=== PATIENT | male | born 1950 | race African-American/Black ===

== ENCOUNTER 2016-05-26 00:10 | Inpatient (IN) | payer MEDICARE, OTHER ==
[~2016-05-26] VITALS: Ht 175.3 cm; Wt 63.7 kg
[2016-05-26 01:15] LABS: Basophils # (auto) 0 uL; Basophils % (auto) 0.2 % (0.0-2.0); Eosinophils # (auto) 0.1 uL; Eosinophils % (auto) 1.2 % (0.0-7.0); Hematocrit 42.7 % (41.0-53.0); Hemoglobin 13.8 g/dL (13.5-17.5); Lymphocytes # (auto) 0.6 uL; Lymphocytes % (auto) 7.2 % (10.0-50.0); Mean Corpuscular Hemoglobin 29.9 pg (28.0-32.0); Mean Corpuscular Hgb Conc. 32.4 g/dL (32.0-36.0); Mean Corpuscular Volume 92.2 fL (80.0-100.0); Monocytes # (auto) 0.4 uL; Monocytes % (auto) 5.3 % (0.0-12.0); Neutrophils # (auto) 7.2 uL; Neutrophils % (auto) 86.1 % (37.0-80.0); Platelet Count (auto) 196 10^3/uL (140-450); Red Cell Distribution Width 13.2 % (11.6-16.0); SUSPECT VIEW TRANSMISSION; White Blood Cell 8.3 10^3/uL (4.4-10.8)
[2016-05-26 01:36] LABS: Albumin 3.3 g/dL (3.4-5.0); Calcium 8.6 mg/dL (8.5-10.1); Potassium 3.2 mmol/L (3.5-5.1)
[2016-05-26 01:39] LABS: BUN/Creatinine Ratio 9.2
[2016-05-26 01:43] LABS: Bilirubin, Total 0.3 mg/dL (0.2-1.0); Magnesium 1.8 mg/dL (1.6-2.6); Total Protein 6.3 g/dL (6.4-8.2)
[2016-05-26] MEDS ORDERED: POTASSIUM CHL 20 Meq TABLET PO ONE (02:00)
[2016-05-26] MEDS ORDERED: PROMETHAZINE W/CODEINE 5 ML ORAL SYRUP PO ONE (02:00)
[2016-05-26] MEDS ORDERED: ASPirin 81 mg TAB PO ONE (02:15)
[2016-05-26 03:17] LABS: Urine Bilirubin Negative (Negative); Urine Color Yellow (Yellow); Urine Hyaline Cast FEW /lpf (0 - 2); Urine Ketone Negative (Negative); Urine Nitrite Negative (Negative); Urine RBC 41 /hpf (0 - 3); Urine Urobilinogen Normal (Negative); Urine pH 6.5 (5.0-8.0)
[2016-05-26 03:20] LABS: Urine Blood 2+ /uL (Negative); Urine Glucose 2+ mg/dL (Normal)
[2016-05-26 03:34] LABS: INR 0.99 (0.9-1.15); Partial Thromboplastin Time 26.8 sec (22.64-33.71); Prothrombin Time 10.2 sec (9.37-12.3)
[2016-05-26 04:08] LABS: B-Type Natriuretic Peptide 20.3 pg/mL (0-100); Temperature: 20.5 C (20.0-25.0)
[2016-05-26] MEDS ORDERED: NITROGLYCERIN 2% OINT 1GM PKG TD ONE (08:15)
[2016-05-26] MEDS ORDERED: CLOPIDOGREL BISULFATE 75 MG TAB PO ONE (08:15)
[2016-05-26] MEDS ORDERED: ALBUTEROL SULF 2.5 MG/0.5ML(0.5%) NEB SOLN NEB ONE (08:30)
[2016-05-26] MEDS ORDERED: IPRATROPIUM BROM 0.5 MG/2.5ML INH SOL NEB ONE (08:30)
[2016-05-26] MEDS ORDERED: cloNIDine HCL 0.1 MG TAB PO PRN (12:00)
[2016-05-26] MEDS ORDERED: cefTRIAXone 1GM/50ML D5W 50 ML IV ONE (12:00)
[2016-05-26] MEDS ORDERED: ZOLPIDEM TARTRATE 5 MG TAB PO PRN (12:15)
[2016-05-26] MEDS ORDERED: ALUM & MAG HYDROX-SIMETH LIQ(MAALOX) 30 ML PO PRN (12:15)
[2016-05-26] MEDS ORDERED: NITROGLYCERIN 0.4 MG SL TAB SL PRN ×2 (12:15)
[2016-05-26] MEDS ORDERED: MORPHINE SULF INJ 2 MG/ML SYRINGE 1ML IV PRN ×2 (12:15)
[2016-05-26] MEDS ORDERED: ONDANSETRON HCL 4 MG/2 ML VIAL IV PRN (12:15)
[2016-05-26] MEDS: methylPREDNISolone SOD SUCC 125 MG/2 ML VL IV SCH ×2 (13:02→18:36)
[2016-05-26] MEDS: ALBUTEROL SULF 2.5 MG/0.5ML(0.5%) NEB SOLN NEB SCH ×2 (13:09→18:41)
[2016-05-26] MEDS: IPRATROPIUM BROM 0.5 MG/2.5ML INH SOL NEB SCH ×2 (13:09→18:41)
[2016-05-26 13:27] VITALS: BP 114/72
[2016-05-26] MEDS: SODIUM CHLOR 0.9% PF (SALINE LOCK) 10ML VIAL IV SCH ×2 (14:00→22:00)
[2016-05-26] MEDS: CARVEDILOL 3.125 MG TAB PO SCH (22:00)
[2016-05-26] MEDS: ATORVASTATIN 20 MG TAB PO SCH (22:00)
[2016-05-26] MEDS: ENOXAPARIN SOD 80 MG/0.8ML SYRINGE SC SCH (22:00)
[2016-05-26] MEDS: ENALAPRIL MALEATE 2.5 MG TAB PO SCH (22:00)
[2016-05-27] MEDS: ALBUTEROL SULF 2.5 MG/0.5ML(0.5%) NEB SOLN NEB SCH ×4 (00:47→18:34)
[2016-05-27] MEDS: IPRATROPIUM BROM 0.5 MG/2.5ML INH SOL NEB SCH ×4 (00:47→18:34)
[2016-05-27] MEDS: methylPREDNISolone SOD SUCC 125 MG/2 ML VL IV SCH ×4 (06:09→18:14)
[2016-05-27] MEDS: SODIUM CHLOR 0.9% PF (SALINE LOCK) 10ML VIAL IV SCH ×3 (06:09→18:45)
[2016-05-27 06:22] LABS: Basophils # (auto) 0 uL; Basophils % (auto) 0.1 % (0.0-2.0); Eosinophils # (auto) 0 uL; Eosinophils % (auto) 0.1 % (0.0-7.0); Hematocrit 39.8 % (41.0-53.0); Lymphocytes # (auto) 0.8 uL; Lymphocytes % (auto) 14.5 % (10.0-50.0); Mean Corpuscular Hemoglobin 29.9 pg (28.0-32.0); Mean Corpuscular Hgb Conc. 32.7 g/dL (32.0-36.0); Mean Corpuscular Volume 91.6 fL (80.0-100.0); Mean Platelet Volume 7.1 fL (7.4-10.4); Monocytes # (auto) 0.1 uL; Monocytes % (auto) 2.7 % (0.0-12.0); Neutrophils # (auto) 4.4 uL; Neutrophils % (auto) 82.6 % (37.0-80.0); Platelet Count (auto) 198 10^3/uL (140-450); Red Cell Distribution Width 14.4 % (11.6-16.0); White Blood Cell 5.3 10^3/uL (4.4-10.8)
[2016-05-27 07:46] LABS: BUN/Creatinine Ratio 22.7; Bilirubin, Total 0.4 mg/dL (0.2-1.0); Calcium 8.8 mg/dL (8.5-10.1); Magnesium 2.2 mg/dL (1.6-2.6); Potassium 4.3 mmol/L (3.5-5.1); Total Protein 6.1 g/dL (6.4-8.2)
[2016-05-27] MEDS: cefTRIAXone 1GM/50ML D5W 50 ML IV SCH (09:59)
[2016-05-27] MEDS: ENOXAPARIN SOD 80 MG/0.8ML SYRINGE SC SCH (09:59)
[2016-05-27] MEDS: CLOPIDOGREL BISULFATE 75 MG TAB PO SCH (09:59)
[2016-05-27] MEDS: CARVEDILOL 3.125 MG TAB PO SCH ×2 (09:59→23:25)
[2016-05-27] MEDS: DOCUSATE SOD 100 MG CAP PO SCH (09:59)
[2016-05-27] MEDS: ENALAPRIL MALEATE 2.5 MG TAB PO SCH ×2 (09:59→23:26)
[2016-05-27] MEDS: CHOLECALCIFEROL (VITD3) 1,000 UNIT TAB PO SCH (09:59)
[2016-05-27] MEDS: ASPirin 81 mg TAB PO SCH (09:59)
[2016-05-27] MEDS: ATORVASTATIN 20 MG TAB PO SCH (23:25)
[2016-05-28] MEDS: methylPREDNISolone SOD SUCC 125 MG/2 ML VL IV SCH ×4 (00:04→18:00)
[2016-05-28] MEDS: IPRATROPIUM BROM 0.5 MG/2.5ML INH SOL NEB SCH ×3 (00:10→19:26)
[2016-05-28] MEDS: ALBUTEROL SULF 2.5 MG/0.5ML(0.5%) NEB SOLN NEB SCH ×3 (00:10→19:26)
[2016-05-28] MEDS: SODIUM CHLOR 0.9% PF (SALINE LOCK) 10ML VIAL IV SCH ×3 (06:00→21:58)
[2016-05-28] MEDS ORDERED: LIDOCAINE 2%HCL (LOCAL ANESTH.) INJ 20ML MDV ONE ×2 (07:42→20:07)
[2016-05-28] MEDS ORDERED: IODIXANOL 320MG/ML 100ML BTL IV ONE ×2 (07:52→20:07)
[2016-05-28] MEDS: cefTRIAXone 1GM/50ML D5W 50 ML IV SCH (08:06)
[2016-05-28] MEDS ORDERED: VERAPAMIL 2.5MG/ML INJ 2ML VIAL IV ONE (09:14)
[2016-05-28] MEDS ORDERED: ANGIOMAX 250 MG VIAL IV ONE ×2 (09:14→20:27)
[2016-05-28] MEDS ORDERED: SODIUM CHL 0.9% 50 ML ONE ×2 (09:15→20:27)
[2016-05-28] MEDS ORDERED: EPTIFIBATIDE INJ (2MG/ML) 10ML VIAL IV ONE (09:15)
[2016-05-28] MEDS ORDERED: MIDAZOLAM HCL 1MG/1ML-2 ML VIAL ONE ×2 (09:15→20:27)
[2016-05-28] MEDS ORDERED: fentaNYL CITRATE 100 MCG/2 ML VL ONE ×2 (09:15→20:27)
[2016-05-28] MEDS ORDERED: PRASUGREL HCL 10 MG TAB ONE ×2 (09:46→09:48)
[2016-05-28] MEDS ORDERED: ASPirin 81 mg TAB ONE (09:49)
[2016-05-28] MEDS: ASPirin 81 mg TAB PO SCH (10:00)
[2016-05-28] MEDS: CLOPIDOGREL BISULFATE 75 MG TAB PO SCH (10:00)
[2016-05-28] MEDS: ENALAPRIL MALEATE 2.5 MG TAB PO SCH ×2 (10:00→22:00)
[2016-05-28] MEDS: CHOLECALCIFEROL (VITD3) 1,000 UNIT TAB PO SCH (10:00)
[2016-05-28] MEDS: DOCUSATE SOD 100 MG CAP PO SCH (10:00)
[2016-05-28] MEDS: CARVEDILOL 3.125 MG TAB PO SCH (10:00)
[2016-05-28 13:00] VITALS: BP 146/113
[2016-05-28] MEDS: AZITHROMYCIN 500MG/D5W 250ML 250 ML IV SCH (14:30)
[2016-05-28 15:07] LABS: B-Type Natriuretic Peptide 191.8 pg/mL (0-100); Temperature: 22.7 C (20.0-25.0)
[2016-05-28] MEDS ORDERED: FUROSEMIDE 20 MG/2 ML VIAL IV ONE (16:45)
[2016-05-28 17:00] VITALS: BP 159/104
[2016-05-28] MEDS: LORazepam 0.5 MG TAB PO PRN ×2 (17:02→22:07)
[2016-05-28] MEDS ORDERED: METOPROLOL TARTRATE 1MG/1ML-5ML VIAL IV ONE (17:45)
[2016-05-28] MEDS ORDERED: DILTIAZEM HCL 25 MG/5 ML VIAL IV ONE (18:45)
[2016-05-28 18:53] LABS: Basophils # (auto) 0 uL; Basophils % (auto) 0.1 % (0.0-2.0); Eosinophils # (auto) 0 uL; Hematocrit 41.1 % (41.0-53.0); Hemoglobin 13.4 g/dL (13.5-17.5); Lymphocytes # (auto) 0.5 uL; Lymphocytes % (auto) 5.8 % (10.0-50.0); Mean Corpuscular Hemoglobin 29.7 pg (28.0-32.0); Mean Corpuscular Hgb Conc. 32.7 g/dL (32.0-36.0); Mean Corpuscular Volume 90.8 fL (80.0-100.0); Mean Platelet Volume 7.2 fL (7.4-10.4); Monocytes # (auto) 0.2 uL; Monocytes % (auto) 2.1 % (0.0-12.0); Platelet Count (auto) 205 10^3/uL (140-450); Red Cell Distribution Width 14.3 % (11.6-16.0); White Blood Cell 8.7 10^3/uL (4.4-10.8)
[2016-05-28 20:00] VITALS: BP 140/111
[2016-05-28 20:04] LABS: BUN/Creatinine Ratio 31.5; Calcium 7.7 mg/dL (8.5-10.1)
[2016-05-28] MEDS ORDERED: NITROGLYCERIN 50MG/250ML 250 ML IV ONE (20:45)
[2016-05-28] MEDS: HEPARIN DRIP/D5W 100UNITS/ML 250 ML IV SCH (21:18)
[2016-05-28] MEDS ORDERED: AMIODARONE HCL 900 MG in DEXTROSE 500 ML IV SCH (21:28)
[2016-05-28] MEDS ORDERED: AMIODARONE HCL 150 MG in D5W 5% 100 ML IV ONE (21:30)
[2016-05-28 21:58] LABS: Basophils # (auto) 0 uL; Eosinophils # (auto) 0 uL; Hematocrit 38.2 % (41.0-53.0); Hemoglobin 12.4 g/dL (13.5-17.5); Lymphocytes # (auto) 0.4 uL; Mean Corpuscular Hemoglobin 29.7 pg (28.0-32.0); Mean Corpuscular Hgb Conc. 32.4 g/dL (32.0-36.0); Mean Corpuscular Volume 91.7 fL (80.0-100.0); Mean Platelet Volume 7.1 fL (7.4-10.4); Monocytes # (auto) 0.2 uL; Monocytes % (auto) 2.8 % (0.0-12.0); Neutrophils # (auto) 7.8 uL; Neutrophils % (auto) 92.2 % (37.0-80.0); Platelet Count (auto) 209 10^3/uL (140-450); Red Cell Distribution Width 14.1 % (11.6-16.0); White Blood Cell 8.5 10^3/uL (4.4-10.8)
[2016-05-28] MEDS: ATORVASTATIN 20 MG TAB PO SCH (22:00)
[2016-05-28 22:10] LABS: INR 1.02 (0.9-1.15); Partial Thromboplastin Time 27.2 sec (22.64-33.71); Prothrombin Time 10.5 sec (9.37-12.3)
[2016-05-28 23:15] VITALS: BP 133/70
[2016-05-28 23:30] VITALS: BP 154/68
[2016-05-28 23:45] VITALS: BP 148/84
[2016-05-29] VITALS (90 sets, daily range): BP systolic 90–157; BP diastolic 40–101
[2016-05-29] MEDS: NITROGLYCERIN 50MG/250ML 250 ML IV SCH
[2016-05-29] MEDS: IPRATROPIUM BROM 0.5 MG/2.5ML INH SOL NEB SCH ×4 (00:06→22:25)
[2016-05-29] MEDS: ALBUTEROL SULF 2.5 MG/0.5ML(0.5%) NEB SOLN NEB SCH ×4 (00:06→22:25)
[2016-05-29] MEDS: methylPREDNISolone SOD SUCC 125 MG/2 ML VL IV SCH ×5 (00:28→23:34)
[2016-05-29] MEDS: AMIODARONE HCL 900 MG in DEXTROSE 500 ML IV SCH ×2 (03:49→20:27)
[2016-05-29 03:51] LABS: Basophils # (auto) 0 uL; Eosinophils # (auto) 0 uL; Hematocrit 37.9 % (41.0-53.0); Hemoglobin 12.3 g/dL (13.5-17.5); Lymphocytes # (auto) 0.5 uL; Lymphocytes % (auto) 5.6 % (10.0-50.0); Mean Corpuscular Hemoglobin 29.8 pg (28.0-32.0); Mean Corpuscular Hgb Conc. 32.5 g/dL (32.0-36.0); Mean Corpuscular Volume 91.7 fL (80.0-100.0); Mean Platelet Volume 7.2 fL (7.4-10.4); Monocytes # (auto) 0.4 uL; Monocytes % (auto) 4.2 % (0.0-12.0); Neutrophils # (auto) 7.7 uL; Neutrophils % (auto) 90.2 % (37.0-80.0); Platelet Count (auto) 208 10^3/uL (140-450); White Blood Cell 8.5 10^3/uL (4.4-10.8)
[2016-05-29 04:09] LABS: BUN/Creatinine Ratio 35.7; Calcium 8.1 mg/dL (8.5-10.1); Magnesium 2.5 mg/dL (1.6-2.6); Potassium 4.1 mmol/L (3.5-5.1)
[2016-05-29 04:19] LABS: INR 1.01 (0.9-1.15); Partial Thromboplastin Time 42.6 sec (22.64-33.71); Prothrombin Time 10.4 sec (9.37-12.3)
[2016-05-29] MEDS: SODIUM CHLOR 0.9% PF (SALINE LOCK) 10ML VIAL IV SCH ×2 (06:01→22:00)
[2016-05-29] MEDS ORDERED: DEXTROSE (50%) 50ML SYRG IV PRN (06:30)
[2016-05-29] MEDS ORDERED: CLOPIDOGREL BISULFATE 75 MG TAB PO ONE (08:00)
[2016-05-29 10:11] LABS: INR 1.04 (0.9-1.15); Partial Thromboplastin Time 54.2 sec (22.64-33.71); Prothrombin Time 10.7 sec (9.37-12.3)
[2016-05-29] MEDS: DOCUSATE SOD 100 MG CAP PO SCH (10:16)
[2016-05-29] MEDS: CHOLECALCIFEROL (VITD3) 1,000 UNIT TAB PO SCH (10:16)
[2016-05-29] MEDS: ENALAPRIL MALEATE 2.5 MG TAB PO SCH ×2 (10:16→21:44)
[2016-05-29] MEDS: cefTRIAXone 1GM/50ML D5W 50 ML IV SCH (10:16)
[2016-05-29] MEDS: ASPirin 81 mg TAB PO SCH (10:16)
[2016-05-29 10:58] LABS: Albumin 2.9 g/dL (3.4-5.0); BUN/Creatinine Ratio 31.3; Bilirubin, Total 0.3 mg/dL (0.2-1.0); Calcium 8.4 mg/dL (8.5-10.1); Potassium 4.1 mmol/L (3.5-5.1); Total Protein 5.9 g/dL (6.4-8.2)
[2016-05-29] MEDS: ACCU-CHEK COMFORT CURVE STRIP VI SCH ×3 (12:20→23:34)
[2016-05-29] MEDS: AZITHROMYCIN 500MG/D5W 250ML 250 ML IV SCH (12:20)
[2016-05-29] MEDS: InsuLIN REG 1unit/0.01ml Soln (100units/ml) SC SCH ×3 (12:22→23:40)
[2016-05-29] MEDS: HYDROmorphone HCL 2 MG/ML VL IV PRN (20:23)
[2016-05-29] MEDS: HEPARIN DRIP/D5W 100UNITS/ML 250 ML IV SCH (20:32)
[2016-05-29 21:04] LABS: INR 1.05 (0.9-1.15); Partial Thromboplastin Time 58.5 sec (22.64-33.71); Prothrombin Time 10.8 sec (9.37-12.3)
[2016-05-29] MEDS: ATORVASTATIN 20 MG TAB PO SCH (21:44)
[2016-05-29] MEDS: ACETYLCYSTEINE 10 %(100MG/ML) SOL 4ML NEB SCH (22:25)
[2016-05-29] MEDS: ACETAMINOPHEN 325 MG TAB PO PRN (22:41)
[2016-05-30] VITALS (77 sets, daily range): BP systolic 84–165; BP diastolic 46–111
[2016-05-30] MEDS: NITROGLYCERIN 50MG/250ML 250 ML IV SCH (01:46)
[2016-05-30] MEDS: IPRATROPIUM BROM 0.5 MG/2.5ML INH SOL NEB SCH ×9 (02:30→23:30)
[2016-05-30 04:10] LABS: Basophils # (auto) 0 uL; Eosinophils # (auto) 0 uL; Hematocrit 34.3 % (41.0-53.0); Hemoglobin 11.2 g/dL (13.5-17.5); Lymphocytes # (auto) 0.6 uL; Lymphocytes % (auto) 6.1 % (10.0-50.0); Mean Corpuscular Hemoglobin 29.9 pg (28.0-32.0); Mean Corpuscular Hgb Conc. 32.6 g/dL (32.0-36.0); Mean Corpuscular Volume 91.5 fL (80.0-100.0); Mean Platelet Volume 7.4 fL (7.4-10.4); Monocytes # (auto) 0.3 uL; Monocytes % (auto) 3.3 % (0.0-12.0); Neutrophils # (auto) 8.4 uL; Neutrophils % (auto) 90.6 % (37.0-80.0); Platelet Count (auto) 168 10^3/uL (140-450); Red Cell Distribution Width 13.8 % (11.6-16.0); White Blood Cell 9.3 10^3/uL (4.4-10.8)
[2016-05-30 04:25] LABS: INR 1.03 (0.9-1.15); Partial Thromboplastin Time 66.2 sec (22.64-33.71); Prothrombin Time 10.6 sec (9.37-12.3)
[2016-05-30 04:31] LABS: Calcium 7.8 mg/dL (8.5-10.1); Magnesium 2.6 mg/dL (1.6-2.6)
[2016-05-30 04:34] LABS: BUN/Creatinine Ratio 32.6
[2016-05-30] MEDS: methylPREDNISolone SOD SUCC 125 MG/2 ML VL IV SCH (05:27)
[2016-05-30] MEDS: InsuLIN REG 1unit/0.01ml Soln (100units/ml) SC SCH ×3 (05:28→17:47)
[2016-05-30] MEDS: ACETAMINOPHEN 325 MG TAB PO PRN (05:33)
[2016-05-30] MEDS: SODIUM CHLOR 0.9% PF (SALINE LOCK) 10ML VIAL IV SCH ×3 (06:00→22:30)
[2016-05-30] MEDS: ACCU-CHEK COMFORT CURVE STRIP VI SCH ×3 (06:07→17:46)
[2016-05-30] MEDS: ALBUTEROL SULF 2.5 MG/0.5ML(0.5%) NEB SOLN NEB SCH ×3 (06:23→23:30)
[2016-05-30] MEDS: ACETYLCYSTEINE 10 %(100MG/ML) SOL 4ML NEB SCH ×3 (06:23→23:30)
[2016-05-30] MEDS ORDERED: CLOPIDOGREL BISULFATE 75 MG TAB PO ONE (08:00)
[2016-05-30] MEDS: HYDROmorphone HCL 2 MG/ML VL IV PRN ×2 (08:25→20:41)
[2016-05-30] MEDS: cefTRIAXone 1GM/50ML D5W 50 ML IV SCH (08:25)
[2016-05-30] MEDS: BOOST PLUS 8 ounce PO SCH ×2 (10:00→15:00)
[2016-05-30] MEDS: AZITHROMYCIN 500MG/D5W 250ML 250 ML IV SCH (10:00)
[2016-05-30] MEDS: ASPirin 81 mg TAB PO SCH (10:31)
[2016-05-30] MEDS: DOCUSATE SOD 100 MG CAP PO SCH (10:31)
[2016-05-30] MEDS: CHOLECALCIFEROL (VITD3) 1,000 UNIT TAB PO SCH (10:32)
[2016-05-30] MEDS: ENALAPRIL MALEATE 2.5 MG TAB PO SCH ×2 (10:33→22:30)
[2016-05-30] MEDS ORDERED: ALBUAER3 IN (12:11)
[2016-05-30] MEDS ORDERED: PRE5T PO (12:14)
[2016-05-30] MEDS ORDERED: CHOL500021 PO (12:14)
[2016-05-30] MEDS ORDERED: MUPIROCIN 2% OINT 22GM TOP SCH (21:00)
[2016-05-30] MEDS: HEPARIN DRIP/D5W 100UNITS/ML 250 ML IV SCH (21:09)
[2016-05-30] MEDS ORDERED: HYDROmorphone HCL 2 MG/ML VL IV PRN (22:15)
[2016-05-30] MEDS ORDERED: NITROGLYCERIN 2% OINT 1GM PKG TD ONE (22:15)
[2016-05-30] MEDS ORDERED: HYDROmorphone HCL 2 MG/ML VL ONE (22:15)
[2016-05-30] MEDS: ATORVASTATIN 20 MG TAB PO SCH (22:29)
[2016-05-31] MEDS: LORazepam 0.5 MG TAB PO PRN (00:36)
[2016-05-31] MEDS ORDERED: HYDROcodone-ACET 10/325MG TAB PO PRN (01:45)
[2016-05-31] MEDS: IPRATROPIUM BROM 0.5 MG/2.5ML INH SOL NEB SCH ×7 (02:00→22:00)
[2016-05-31] MEDS ORDERED: CHLORHEXIDINE 4% TOPICAL soln 473ML TOP ONE (02:00)
[2016-05-31] MEDS: HYDROmorphone HCL 2 MG/ML VL IV PRN ×3 (02:39→09:55)
[2016-05-31] MEDS: NITROGLYCERIN 2% OINT 1GM PKG TD SCH ×3 (02:43→05:00)
[2016-05-31 03:50] LABS: Basophils # (auto) 0 uL; Eosinophils # (auto) 0 uL; Hematocrit 31.7 % (41.0-53.0); Hemoglobin 10.5 g/dL (13.5-17.5); Lymphocytes # (auto) 1.6 uL; Lymphocytes % (auto) 11.1 % (10.0-50.0); Mean Corpuscular Hemoglobin 30.5 pg (28.0-32.0); Mean Corpuscular Hgb Conc. 33.1 g/dL (32.0-36.0); Mean Platelet Volume 7.3 fL (7.4-10.4); Monocytes % (auto) 7.1 % (0.0-12.0); Neutrophils % (auto) 81.8 % (37.0-80.0); Platelet Count (auto) 198 10^3/uL (140-450); Red Cell Distribution Width 13.5 % (11.6-16.0); White Blood Cell 14.7 10^3/uL (4.4-10.8)
[2016-05-31 04:14] LABS: INR 1.11 (0.9-1.15); Prothrombin Time 11.4 sec (9.37-12.3)
[2016-05-31] MEDS: ACCU-CHEK COMFORT CURVE STRIP VI SCH ×4 (05:47→17:52)
[2016-05-31] MEDS: InsuLIN REG 1unit/0.01ml Soln (100units/ml) SC SCH ×4 (05:56→17:54)
[2016-05-31 06:36] LABS: BUN/Creatinine Ratio 30.3; Magnesium 2.3 mg/dL (1.6-2.6); Potassium 4.2 mmol/L (3.5-5.1)
[2016-05-31] MEDS: ALBUTEROL SULF 2.5 MG/0.5ML(0.5%) NEB SOLN NEB SCH ×3 (06:45→22:00)
[2016-05-31] MEDS: ACETYLCYSTEINE 10 %(100MG/ML) SOL 4ML NEB SCH ×3 (06:46→22:00)
[2016-05-31] MEDS ORDERED: VANCOMYCIN 1GM/250ML D5W 250 ML IV ONE (07:00)
[2016-05-31] MEDS: SODIUM CHLOR 0.9% PF (SALINE LOCK) 10ML VIAL IV SCH ×4 (07:50→22:00)
[2016-05-31] MEDS ORDERED: ceFAZolin 1GM/50ML D5W 50 ML IV ONE (08:00)
[2016-05-31] MEDS ORDERED: AMINOCAPROIC ACID 5 GM in SODIUM CHL 0.9% 250 ML IV ONE (08:00)
[2016-05-31] MEDS ORDERED: EPINEPHrine HCL INJECTION 4 MG in D5W 5% 250 ML IV ONE (08:00)
[2016-05-31] MEDS ORDERED: VASOPRESSIN 50 UNITS in SODIUM CHL 0.9% 247.5 ML IV ONE (08:00)
[2016-05-31] MEDS ORDERED: HEPARIN 30000 UNITS in SODIUM CHLORIDE 0.9% 1000 ML IV ONE (08:00)
[2016-05-31] MEDS ORDERED: CHLORHEXIDINE 0.12% ORAL rinse 473ML MT ONE (08:00)
[2016-05-31] MEDS: NITROGLYCERIN 50MG/250ML 250 ML IV SCH (08:00)
[2016-05-31] MEDS ORDERED: InsuLIN R (HUMAN) 100 UNITS in SODIUM CHL 0.9% 99 ML IV ONE (08:00)
[2016-05-31] MEDS ORDERED: AMINOCAPROIC ACID 10 GM in SODIUM CHL 0.9% 100 ML IV ONE (08:00)
[2016-05-31] MEDS ORDERED: PHENYLEPHRINE INJ 20 MG in NS 0.9% 248 ML IV ONE (08:00)
[2016-05-31] MEDS ORDERED: ACCU-CHEK COMFORT CURVE STRIP VI ONE (09:00)
[2016-05-31] MEDS: BOOST PLUS 8 ounce PO SCH ×2 (10:00→15:00)
[2016-05-31] MEDS: ASPirin 81 mg TAB PO SCH (10:00)
[2016-05-31] MEDS: DOCUSATE SOD 100 MG CAP PO SCH (10:00)
[2016-05-31] MEDS: CHOLECALCIFEROL (VITD3) 1,000 UNIT TAB PO SCH (10:00)
[2016-05-31] MEDS: ENALAPRIL MALEATE 2.5 MG TAB PO SCH ×2 (10:00→22:00)
[2016-05-31] MEDS ORDERED: NITROGLYCERIN 50MG/250ML 250 ML IV ONE (11:02)
[2016-05-31] MEDS ORDERED: NOREPINEPHRINE BITARTRATE 250 ML IV ONE ×2 (11:02→13:31)
[2016-05-31] MEDS ORDERED: ceFAZolin 1GM VL ONE (11:04)
[2016-05-31] MEDS ORDERED: ROCURONIUM 10MG/ML 10ML VIAL IV ONE (11:41)
[2016-05-31] MEDS ORDERED: MIDAZOLAM HCL 1MG/1ML-2 ML VIAL ONE (11:41)
[2016-05-31] MEDS ORDERED: fentaNYL CITRATE 100 MCG/2 ML VL ONE ×2 (11:41→13:15)
[2016-05-31] MEDS ORDERED: PROPOFOL 10 MG/ML 20 ML IV ONE (11:41)
[2016-05-31] MEDS ORDERED: ceFAZolin 1GM/50ML D5W 100 ML IV ONE (12:00)
[2016-05-31] MEDS ORDERED: VANCOMYCIN PER PHARMACY 0 MG IV SCH (13:15)
[2016-05-31] MEDS: fentaNYL Drip 2500mCg/250mlNS 250 ML IV SCH (13:30)
[2016-05-31] MEDS: PROPOFOL 100 ML IV SCH (13:30)
[2016-05-31 14:42] VITALS: BP 75/55
[2016-05-31] MEDS: PIPERACILLIN-TAZOB 3.375GM 100 ML IV SCH ×2 (14:51→21:36)
[2016-05-31] MEDS: NOREPINEPHRINE BITARTRATE 250 ML IV SCH ×2 (15:00→19:00)
[2016-05-31] MEDS ORDERED: SODIUM CHLORIDE 0.9% 1,000 ML IV SCH (15:30)
[2016-05-31] MEDS ORDERED: ALBUMIN 25% 100 ML IV ONE (16:00)
[2016-05-31] MEDS ORDERED: ASPirin 325 MG TAB NG ONE (16:15)
[2016-05-31] MEDS ORDERED: ASPirin 325 MG TAB ONE (16:27)
[2016-05-31 16:32] VITALS: BP 59/49
[2016-05-31 16:50] LABS: Basophils # (auto) 0.1 uL; Basophils % (auto) 0.3 % (0.0-2.0); DEFINITIVE VIEW TRANSMISSION; Eosinophils # (auto) 0.1 uL; Eosinophils % (auto) 0.3 % (0.0-7.0); Hematocrit 27.7 % (41.0-53.0); Hemoglobin 9.3 g/dL (13.5-17.5); Lymphocytes # (auto) 4.1 uL; Lymphocytes % (auto) 20.7 % (10.0-50.0); Mean Corpuscular Hemoglobin 30.5 pg (28.0-32.0); Mean Corpuscular Hgb Conc. 33.7 g/dL (32.0-36.0); Mean Corpuscular Volume 90.8 fL (80.0-100.0); Mean Platelet Volume 7.6 fL (7.4-10.4); Monocytes # (auto) 1.6 uL; Monocytes % (auto) 8.2 % (0.0-12.0); Neutrophils # (auto) 13.8 uL; Neutrophils % (auto) 70.5 % (37.0-80.0); Platelet Count (auto) 143 10^3/uL (140-450); Red Cell Distribution Width 13.6 % (11.6-16.0); White Blood Cell 19.6 10^3/uL (4.4-10.8)
[2016-05-31] MEDS: VANCOMYCIN 1GM/250ML D5W 250 ML IV SCH (17:12)
[2016-05-31 18:24] LABS: BUN/Creatinine Ratio 19.8; Potassium 3.7 mmol/L (3.5-5.1)
[2016-05-31 18:31] LABS: Calcium 5.8 mg/dL (8.5-10.1)
[2016-05-31] MEDS ORDERED: LIDOCAINE 1% HCL (LOCAL ANESTH.) INJ 20ML MDV ID ONE (19:00)
[2016-05-31] MEDS: MIDAZOLAM DRIP 100 mg/100mL NS 100 ML IV SCH (20:00)
[2016-05-31 20:01] VITALS: BP 59/49
[2016-05-31] MEDS: SODIUM BICARBONATE 50ML VIAL 50 ML in SODIUM CHLORIDE 0.9% 1,000 ML IV SCH (21:00)
[2016-05-31] MEDS ORDERED: CLOPIDOGREL 300 MG TAB NG ONE (21:15)
[2016-05-31 21:21] LABS: BUN/Creatinine Ratio 25.4; Calcium 7.2 mg/dL (8.5-10.1); Potassium 4.3 mmol/L (3.5-5.1)
[2016-05-31 22:00] VITALS: BP 59/49
[2016-05-31] MEDS: ATORVASTATIN 20 MG TAB PO SCH (22:00)
[2016-06-01] VITALS (22 sets, daily range): BP systolic 59–117; BP diastolic 38–71
[2016-06-01] MEDS: NITROGLYCERIN 50MG/250ML 250 ML IV SCH (01:46)
[2016-06-01] MEDS: IPRATROPIUM BROM 0.5 MG/2.5ML INH SOL NEB SCH ×6 (01:49→22:44)
[2016-06-01] MEDS: PIPERACILLIN-TAZOB 3.375GM 100 ML IV SCH ×4 (03:00→20:08)
[2016-06-01] MEDS ORDERED: CALCIUM GLUC 4.65 MEQ/10ML 4.65 MEQ in SODIUM CHL 0.9% 50 ML IV ONE ×2 (03:30→12:45)
[2016-06-01] MEDS ORDERED: CALCIUM GLUC 4.65 MEQ/10ML IV ONE (03:37)
[2016-06-01 03:49] LABS: Albumin 2.6 g/dL (3.4-5.0); BUN/Creatinine Ratio 25.5; Bilirubin, Total 0.4 mg/dL (0.2-1.0); Calcium 7.3 mg/dL (8.5-10.1); Magnesium 2.2 mg/dL (1.6-2.6); Potassium 4.2 mmol/L (3.5-5.1); Total Protein 4.5 g/dL (6.4-8.2)
[2016-06-01 05:09] LABS: DEFINITIVE VIEW TRANSMISSION; Hematocrit 19.8 % (41.0-53.0); Mean Corpuscular Hemoglobin 31.1 pg (28.0-32.0); Mean Corpuscular Hgb Conc. 33.9 g/dL (32.0-36.0); Mean Corpuscular Volume 91.9 fL (80.0-100.0); Mean Platelet Volume 7.6 fL (7.4-10.4); Red Cell Distribution Width 14.1 % (11.6-16.0); SUSPECT VIEW TRANSMISSION; White Blood Cell 21.3 10^3/uL (4.4-10.8)
[2016-06-01 05:22] LABS: INR 1.15 (0.9-1.15)
[2016-06-01 05:35] LABS: Hemoglobin 6.7 g/dL (13.5-17.5)
[2016-06-01 05:36] LABS: Platelet Count (auto) 111 10^3/uL (140-450)
[2016-06-01 05:37] LABS: Metamyelocytes % 0; Myelocytes % 0; Promyelocytes % 0; Reactive Lymphocytes 0
[2016-06-01] MEDS: SODIUM CHLOR 0.9% PF (SALINE LOCK) 10ML VIAL IV SCH ×5 (06:11→22:00)
[2016-06-01] MEDS: VANCOMYCIN 1GM/250ML D5W 250 ML IV SCH ×2 (06:12→16:59)
[2016-06-01] MEDS: ACCU-CHEK COMFORT CURVE STRIP VI SCH ×4 (06:30→18:02)
[2016-06-01] MEDS: InsuLIN REG 1unit/0.01ml Soln (100units/ml) SC SCH ×4 (06:30→18:03)
[2016-06-01] MEDS: ALBUTEROL SULF 2.5 MG/0.5ML(0.5%) NEB SOLN NEB SCH ×3 (07:01→22:44)
[2016-06-01] MEDS: ACETYLCYSTEINE 10 %(100MG/ML) SOL 4ML NEB SCH ×3 (07:02→22:44)
[2016-06-01] MEDS: SODIUM BICARBONATE 50ML VIAL 50 ML in SODIUM CHLORIDE 0.9% 1,000 ML IV SCH ×2 (08:00→10:48)
[2016-06-01 08:11] LABS: Platelet Estimate Decreased
[2016-06-01 08:12] LABS: Ovalocytes FEW
[2016-06-01] MEDS: MIDAZOLAM DRIP 100 mg/100mL NS 100 ML IV SCH (08:43)
[2016-06-01] MEDS: fentaNYL Drip 2500mCg/250mlNS 250 ML IV SCH (08:43)
[2016-06-01] MEDS ORDERED: SODIUM CHLORIDE 0.9% 1,000 ML IV ONE (09:15)
[2016-06-01] MEDS ORDERED: PANTOPRAZOLE SODIUM 40 MG/10 ML VIAL IV ONE (09:30)
[2016-06-01] MEDS: ASPirin 81 mg TAB PO SCH (09:47)
[2016-06-01] MEDS: DOCUSATE SOD 100 MG CAP PO SCH (09:48)
[2016-06-01] MEDS: BOOST PLUS 8 ounce PO SCH ×2 (09:48→15:00)
[2016-06-01] MEDS: CHOLECALCIFEROL (VITD3) 1,000 UNIT TAB PO SCH (09:49)
[2016-06-01] MEDS: ENALAPRIL MALEATE 2.5 MG TAB PO SCH ×2 (09:49→22:00)
[2016-06-01] MEDS ORDERED: CLOPIDOGREL BISULFATE 75 MG TAB PO SCH (10:00)
[2016-06-01] MEDS: NOREPINEPHRINE BITARTRATE 250 ML IV SCH ×2 (12:00→16:59)
[2016-06-01] MEDS: PROPOFOL 100 ML IV SCH (12:55)
[2016-06-01] MEDS ORDERED: SODIUM CHLORIDE 0.9% 1,000 ML IV SCH (13:45)
[2016-06-01 16:59] LABS: Calcium 6.9 mg/dL (8.5-10.1); Potassium 3.9 mmol/L (3.5-5.1)
[2016-06-01 17:41] LABS: Hematocrit 27.4 % (41.0-53.0); Hemoglobin 9.3 g/dL (13.5-17.5); Mean Corpuscular Hemoglobin 30.9 pg (28.0-32.0); Mean Corpuscular Hgb Conc. 33.8 g/dL (32.0-36.0); Mean Corpuscular Volume 91.6 fL (80.0-100.0); Mean Platelet Volume 7.9 fL (7.4-10.4); Platelet Count (auto) 96 10^3/uL (140-450); Red Cell Distribution Width 13.4 % (11.6-16.0); SUSPECT VIEW TRANSMISSION; White Blood Cell 21.8 10^3/uL (4.4-10.8)
[2016-06-01 17:47] LABS: Metamyelocytes % 0; Myelocytes % 0; Promyelocytes % 0; Reactive Lymphocytes 0
[2016-06-01 19:04] LABS: Platelet Estimate Decreased
[2016-06-01] MEDS: ATORVASTATIN 20 MG TAB PO SCH (22:00)
[2016-06-02] MEDS: InsuLIN REG 1unit/0.01ml Soln (100units/ml) SC SCH
[2016-06-02] MEDS: ACCU-CHEK COMFORT CURVE STRIP VI SCH
[2016-06-02 00:58] VITALS: BP 73/45
[2016-06-02] MEDS: NITROGLYCERIN 50MG/250ML 250 ML IV SCH (01:00)
[2016-06-02 01:05] LABS: Hematocrit 27.5 % (41.0-53.0); Hemoglobin 9.1 g/dL (13.5-17.5)
[2016-06-02] MEDS: NOREPINEPHRINE BITARTRATE 250 ML IV SCH (01:06)
[2016-06-02 02:06] VITALS: BP 80/51
[2016-06-02] MEDS: IPRATROPIUM BROM 0.5 MG/2.5ML INH SOL NEB SCH (02:06)
[2016-06-02] MEDS: PIPERACILLIN-TAZOB 3.375GM 100 ML IV SCH (02:12)
[2016-06-02 03:56] LABS: BUN/Creatinine Ratio 12.9; Calcium 7.1 mg/dL (8.5-10.1); Potassium 3.6 mmol/L (3.5-5.1)
[2016-06-02 04:01] LABS: Bilirubin, Total 0.5 mg/dL (0.2-1.0); Total Protein 4.3 g/dL (6.4-8.2)
[2016-06-02 04:17] VITALS: BP 69/54
[2016-06-02 06:10] VITALS: BP_SYST 82; BP_SYST 83; BP_DIAS 50; BP_DIAS 53
[2016-06-02] MEDS ORDERED: PANTOPRAZOLE SODIUM 40 MG/10 ML VIAL IV SCH (10:00)
[2016-06-02 21:52] VITALS: BP 82/50
== END 2016-06-02 06:00 | disposition short-term general hospital (02) | DRG 270 ==
LOC: ER 00:13 → TELE 00:14 → TELE-WESTW 05-28 12:49 → ICU WEST 05-28 22:39
PROVIDERS: ADMIT Internal Medicine; ATTEND Internal Medicine
PROC: 02703DZ Dilation of Coronary Artery, One Artery with Intraluminal Device, Percutaneous Approach (ICD-10-PCS; principal; 2016-05-28)
PROC: 4A023N7 Measurement of Cardiac Sampling and Pressure, Left Heart, Percutaneous Approach (ICD-10-PCS; 2016-05-28)
PROC: B2111ZZ Fluoroscopy of Multiple Coronary Arteries using Low Osmolar Contrast (ICD-10-PCS; 2016-05-28)
PROC: 5A02210 Assistance with Cardiac Output using Balloon Pump, Continuous (ICD-10-PCS; 2016-05-28)
PROC: 02HV33Z Insertion of Infusion Device into Superior Vena Cava, Percutaneous Approach (ICD-10-PCS; 2016-05-28)
PROC: 0KNC0ZZ Release Right Hand Muscle, Open Approach (ICD-10-PCS; 2016-05-31)
PROC: 0BH17EZ Insertion of Endotracheal Airway into Trachea, Via Natural or Artificial Opening (ICD-10-PCS; 2016-05-31)
PROC: 5A1945Z Respiratory Ventilation, 24-96 Consecutive Hours (ICD-10-PCS; 2016-05-31)
PROC: 30233N1 Transfusion of Nonautologous Red Blood Cells into Peripheral Vein, Percutaneous Approach (ICD-10-PCS; 2016-06-01)
PROC: 0DH67UZ Insertion of Feeding Device into Stomach, Via Natural or Artificial Opening (ICD-10-PCS; 2016-06-01)
DX: I21.4 Non-ST elevation (NSTEMI) myocardial infarction (principal); J96.00 Acute respiratory failure, unspecified whether with hypoxia or hypercapnia; I13.0 Hypertensive heart and chronic kidney disease with heart failure and stage 1 through stage 4 chronic kidney disease, or unspecified chronic kidney disease; J44.1 Chronic obstructive pulmonary disease with (acute) exacerbation; J45.901 Unspecified asthma with (acute) exacerbation; E44.1 Mild protein-calorie malnutrition; D68.9 Coagulation defect, unspecified; T79.A11A Traumatic compartment syndrome of right upper extremity, initial encounter; I25.10 Atherosclerotic heart disease of native coronary artery without angina pectoris; I48.91 Unspecified atrial fibrillation; I50.9 Heart failure, unspecified; J20.9 Acute bronchitis, unspecified; K21.9 Gastro-esophageal reflux disease without esophagitis; N18.2 Chronic kidney disease, stage 2 (mild); F17.200 Nicotine dependence, unspecified, uncomplicated; E87.6 Hypokalemia; E11.65 Type 2 diabetes mellitus with hyperglycemia; E11.22 Type 2 diabetes mellitus with diabetic chronic kidney disease; E11.21 Type 2 diabetes mellitus with diabetic nephropathy; B19.20 Unspecified viral hepatitis C without hepatic coma; D64.9 Anemia, unspecified; E78.5 Hyperlipidemia, unspecified; N40.0 Benign prostatic hyperplasia without lower urinary tract symptoms; Z79.82 Long term (current) use of aspirin; I25.2 Old myocardial infarction; Z95.5 Presence of coronary angioplasty implant and graft; Z68.20 Body mass index [BMI] 20.0-20.9, adult; Z79.4 Long term (current) use of insulin
CPT/HCPCS: 36415; 36569; 36600; 71010; 71250; 76775; 80048; 80053; 80061; 80202; 81001; 82550; 82805; 82962; 83615; 83735; 83880; 84484; 85007; 85014; 85018; 85025; 85027; 85045; 85576; 85610; 85730; 86850; 86900; 86901; 86920; 87070; 87081; 87205; 93005; 93306; 93886; 93930; 93970; 93971; 94002; 94003; 94640; 94660; 99152; A4565; C1874; C9113; J0171; J0690; J0696; J1644; J1815; J2250; J2543; J2704; J3010; J3490; J7060; Q9967